=== PATIENT | male | born 1975 | race Caucasian/White ===

== ENCOUNTER 2020-01-09 22:27 | Emergency (ER) | payer OTHER ==
[~2020-01-09] VITALS: Ht 175.3 cm; Wt 74.8 kg
--- NOTE | 2020-01-09 22:38 | NUR ---
Dr. Nichole at bedside for MSE
--- NOTE | 2020-01-09 22:39 | NUR ---
Patient ambulating with steady gait. A&Ox4. c/o laceration on right hand s/p sharpening knives today. Sensation intact x5 digits. Able to move all digits freely. Breathing even and unlabored. no cough or SOB noted. Speech is clear and able to make needs known / follow commands. Denies any / GI distress.
[2020-01-09] MEDS ORDERED: ONDANSETRON ODT 4 MG TAB.RAPDIS SL ONE (23:00)
[2020-01-09] MEDS ORDERED: SODIUM BICARBONATE 4.2 % (NEUT) 5 ML VIAL TP ONE (23:00)
[2020-01-09] MEDS ORDERED: LIDOCAINE 1%-EPI 1:100,000 20 ML VIAL IJ ONE (23:00)
[2020-01-09] MEDS ORDERED: AMOXICILLIN-CLAVUL 875-125MG TABLET PO ONE (23:00)
[2020-01-09] MEDS ORDERED: HYDROCODONE/APAP 5-325MG TABLET PO ONE (23:00)
[2020-01-09] MEDS ORDERED: ONDANSETRON ODT 4 MG TAB.RAPDIS ONE (23:09)
[2020-01-09] MEDS ORDERED: HYDROCODONE/APAP 5-325MG TABLET ONE (23:10)
[2020-01-09] MEDS ORDERED: AMOXICILLIN-CLAVUL 875-125MG TABLET ONE (23:10)
--- NOTE | 2020-01-09 23:11 | NUR ---
Patient discharged to home in stable conditon. Written and verbal after care instructions given. Patient verbalizes understanding of instructions. Patient ambulating with steady gait. Girlfriend outside of ED to take patient home
[2020-01-09 23:17] VITALS: BP 136/73
== END 2020-01-09 23:11 | disposition home or self-care (01) ==
LOC: ER 22:31
PROC: 0HQFXZZ Repair Right Hand Skin, External Approach (ICD-10-PCS; principal; 2020-01-09)
DX: S61.411A Laceration without foreign body of right hand, initial encounter (principal); W26.0XXA Contact with knife, initial encounter; Y93.89 Activity, other specified; Y92.89 Other specified places as the place of occurrence of the external cause; F17.210 Nicotine dependence, cigarettes, uncomplicated
CPT/HCPCS: 99284; 12002; 99406; J3490 ×2; A4663; Q0162

== ENCOUNTER 2020-04-01 14:05 | Emergency (ER) | payer OTHER ==
[~2020-04-01] VITALS: Ht 175.3 cm; Wt 74.8 kg
--- NOTE | 2020-04-01 14:19 | NUR ---
Dr. Estrella at bedside for MSE
--- NOTE | 2020-04-01 14:29 | NUR ---
Patient discharged to home in stable condition. Written and verbal after care instructions given. Patient verbalizes understanding of instructions. Stressed follow up or return to ER for worsening s/s. Patient ambulating with steady gait. NAD noted
[2020-04-01 14:38] VITALS: BP 128/82
== END 2020-04-01 14:29 | disposition home or self-care (01) ==
LOC: ER 14:07
DX: M79.10 Myalgia, unspecified site (principal)
CPT/HCPCS: A4663

== ENCOUNTER 2020-10-04 19:05 | Emergency (ER) | payer OTHER ==
[~2020-10-04] VITALS: Ht 175.3 cm; Wt 77.1 kg
--- NOTE | 2020-10-04 20:25 | NUR ---
MSE COMPLETERD, LEFT SHOULDER SLING PLACED, PT D/C'D HOME WITH ACI/RX 2, ORTHO REFERRAL. PT AMBULATED W/O DIFF/TOOK ALL BELONGINGS.
[2020-10-04 20:27] VITALS: BP 148/102
== END 2020-10-04 20:28 | disposition home or self-care (01) ==
LOC: ER 19:06
DX: M25.512 Pain in left shoulder (principal); M54.2 Cervicalgia; S49.92XS Unspecified injury of left shoulder and upper arm, sequela; V49.9XXS Car occupant (driver) (passenger) injured in unspecified traffic accident, sequela
CPT/HCPCS: A4663

== ENCOUNTER 2020-11-11 03:44 | Emergency (ER) | payer OTHER ==
[~2020-11-11] VITALS: Ht 175.3 cm; Wt 74.8 kg
--- NOTE | 2020-11-11 04:09 | NUR ---
at bedside for assessment
[2020-11-11] MEDS ORDERED: IBUPROFEN 800 MG TABLET ONE (04:30)
[2020-11-11] MEDS ORDERED: IBUPROFEN 800 MG TABLET PO ONE (04:30)
--- NOTE | 2020-11-11 04:50 | NUR ---
Patient does not wish to proceed with medical care recommended by Dr. Paul. Patient given information related to possible complications, up to and including , which could occur as a result of leaving the hospital at this time. Patient verbalizes understanding of risks involved due to leaving against medical advice. Patient has refused to sign AMA form.
== END 2020-11-11 04:52 | disposition left against medical advice (07) ==
LOC: ER 03:46
DX: M54.2 Cervicalgia (principal); M79.602 Pain in left arm; Y35.813A Legal intervention involving manhandling, suspect injured, initial encounter; Y92.410 Unspecified street and highway as the place of occurrence of the external cause; F17.210 Nicotine dependence, cigarettes, uncomplicated
CPT/HCPCS: A4663

== ENCOUNTER 2022-01-17 23:44 | Emergency (ER) | payer OTHER ==
[~2022-01-17] VITALS: Ht 175.3 cm; Wt 77.1 kg
--- NOTE | 2022-01-17 23:55 | NUR ---
DR. EASON AT BEDSIDE, MSE IN POROGRESS.
[2022-01-17] MEDS ORDERED: HYDROCODONE/APAP 10-325 MG TABLET ONE (23:56)
[2022-01-17] MEDS ORDERED: ONDANSETRON ODT 4 MG TAB.RAPDIS ONE (23:56)
[2022-01-18] MEDS ORDERED: ONDANSETRON ODT 4 MG TAB.RAPDIS SL ONE
[2022-01-18] MEDS ORDERED: HYDROCODONE/APAP 10-325 MG TABLET PO ONE
--- NOTE | 2022-01-18 | NUR ---
XRAY AT BEDSIDE.
[2022-01-18] MEDS ORDERED: HYDR-4209 PO (00:23)
--- NOTE | 2022-01-18 00:32 | NUR ---
Patient discharged to home in stable condition. Written and verbal after care instructions given. Patient verbalizes understanding of instructions. Stressed follow up or return to ER for worsening s/s. Steady gait, denies any pain/discomfort upon discharge. Picked up by friend.
[2022-01-18 00:36] VITALS: BP 140/81
== END 2022-01-18 00:39 | disposition home or self-care (01) ==
LOC: ER 23:46
DX: S63.92XA Sprain of unspecified part of left wrist and hand, initial encounter (principal); V00.131A Fall from skateboard, initial encounter; Y93.51 Activity, roller skating (inline) and skateboarding; Y92.89 Other specified places as the place of occurrence of the external cause; F17.210 Nicotine dependence, cigarettes, uncomplicated; M25.742 Osteophyte, left hand
CPT/HCPCS: 73130; Q0162

== ENCOUNTER 2022-02-23 00:33 | Emergency (ER) | payer SELFPAY ==
[~2022-02-23 00:33] MED LIST: HYDR-4209 PO
--- NOTE | 2022-02-23 01:00 | NUR ---
Patient went to to registration window and stated "I change my mind. i don't want to be seen anymore." Patient left without being triaged or seen by ERMD.
== END 2022-02-23 01:00 | disposition left against medical advice (07) ==
LOC: ER 00:45
DX: Z53.21 Procedure and treatment not carried out due to patient leaving prior to being seen by health care provider (principal)

== ENCOUNTER 2022-02-23 06:59 | Emergency (ER) | payer SELFPAY ==
--- NOTE | 2022-02-23 07:30 | NUR ---
pt not in the waiting room/outside er waiting room.
== END 2022-02-23 08:00 | disposition left against medical advice (07) ==
LOC: ER 07:03
DX: Z53.21 Procedure and treatment not carried out due to patient leaving prior to being seen by health care provider (principal)

== ENCOUNTER 2022-03-26 00:40 | Emergency (ER) | payer MEDICAID, OTHER ==
[~2022-03-26] VITALS: Ht 175.3 cm; Wt 77.1 kg
--- NOTE | 2022-03-26 01:05 | NUR ---
Dr. Hendricks at bedside for MSE
[2022-03-26] MEDS ORDERED: LIDOCAINE 1%-EPI 1:100,000 20 ML VIAL ONE (01:08)
[2022-03-26] MEDS ORDERED: SULFAMETH/TRIMETH 800/160 MG TABLET ONE (01:14)
[2022-03-26] MEDS ORDERED: SULFAMETH/TRIMETH 800/160 MG TABLET PO ONE (01:15)
[2022-03-26] MEDS ORDERED: LIDOCAINE 1%-EPI 1:100,000 20 ML VIAL IJ ONE (01:15)
[2022-03-26] MEDS ORDERED: OXYCODONE/APAP 5-325 MG TABLET ONE (01:25)
[2022-03-26] MEDS ORDERED: ONDANSETRON HCL 4 MG TABLET ONE (01:26)
[2022-03-26] MEDS ORDERED: ONDANSETRON HCL 4 MG TABLET PO ONE (01:30)
[2022-03-26] MEDS ORDERED: OXYCODONE/APAP 5-325 MG TABLET PO ONE (01:30)
--- NOTE | 2022-03-26 01:30 | NUR ---
Xray at bedside
--- NOTE | 2022-03-26 01:36 | NUR ---
lab at bedside
[2022-03-26 01:52] LABS: HEMATOCRIT 40.1 % (36.7-47.1); MEAN CORPUSCULAR HEMOGLOBIN 30.5 uug (23.8-33.4); MEAN CORPUSCULAR VOLUME 89.2 fL (73.0-96.2); PLATELET COUNT (AUTO) 282 K/uL (152-348)
[2022-03-26] MEDS ORDERED: HYDR-3972 PO (02:06)
[2022-03-26] MEDS ORDERED: SULF1TAB48 PO (02:06)
[2022-03-26 02:11] LABS: BILIRUBIN,DIRECT 0.1 mg/dL (0.0-0.2); BILIRUBIN,TOTAL 0.3 mg/dL (0.2-1.0); CREATININE 1.2 mg/dL (0.6-1.3); POTASSIUM 3.9 mmol/L (3.5-5.1); TOTAL PROTEIN, SERUM 7.4 g/dL (6.4-8.2)
--- NOTE | 2022-03-26 02:45 | NUR ---
Patient given written and verbal discharge instructions. Patient verbalizes understanding of instructions. Patient is ambulatory with steady gait. Wound care provided, tolerated well. Left in stable condition.
[2022-03-26 02:46] VITALS: BP 126/78
== END 2022-03-26 02:46 | disposition home or self-care (01) ==
LOC: ER 00:46
DX: M25.541 Pain in joints of right hand (principal); L90.5 Scar conditions and fibrosis of skin; B94.8 Sequelae of other specified infectious and parasitic diseases; F17.210 Nicotine dependence, cigarettes, uncomplicated; R00.0 Tachycardia, unspecified
CPT/HCPCS: 17999; 36415; 73130; 80048; 80076; 83735; 85025; 87070; 99284; J3490; A4663; Q0162

== ENCOUNTER 2022-05-22 16:00 | Emergency (ER) | payer OTHER ==
[~2022-05-22] VITALS: Ht 175.3 cm; Wt 77.1 kg
[~2022-05-22 16:00] MED LIST changes: +HYDR-3972 PO; +SULF1TAB48 PO
[2022-05-22] MEDS ORDERED: PIPERACILLIN SODIUM/TAZOBACTAM 3.375 G in IV DEXTROSE 5% 50 ML IV ONE (16:15)
[2022-05-22] MEDS ORDERED: VANCOMYCIN IV 1,000 MG in IV DEXTROSE 5% 250 ML IV ONE (16:15)
[2022-05-22] MEDS ORDERED: VANCOMYCIN IV 200 ML ONE (16:38)
[2022-05-22] MEDS ORDERED: PIPERACILLIN/TAZOBACTAM/D5W 50 ML IV ONE (16:39)
[2022-05-22 16:43] LABS: HEMATOCRIT 37.6 % (36.7-47.1); MEAN CORPUSCULAR HEMOGLOBIN 30.2 uug (23.8-33.4); MEAN CORPUSCULAR VOLUME 88.8 fL (73.0-96.2); PLATELET COUNT (AUTO) 242 K/uL (152-348)
[2022-05-22 16:48] LABS: POTASSIUM 3.9 mmol/L (3.5-5.1)
[2022-05-22 16:54] LABS: BILIRUBIN,DIRECT 0.1 mg/dL (0.0-0.2); BILIRUBIN,TOTAL 0.5 mg/dL (0.2-1.0); TOTAL PROTEIN, SERUM 7.4 g/dL (6.4-8.2)
[2022-05-22] MEDS ORDERED: LIDOCAINE HCL 1% 20 ML VIAL ONE (17:12)
[2022-05-22] MEDS ORDERED: LIDOCAINE HCL 1% 20 ML VIAL IJ ONE (17:15)
[2022-05-22] MEDS ORDERED: HYDROMORPHONE 1 MG/1 ML DISP.SYRIN ONE ×2 (18:26→20:48)
[2022-05-22] MEDS ORDERED: HYDROMORPHONE 1 MG/1 ML DISP.SYRIN IV ONE ×2 (18:30→19:00)
[2022-05-22] MEDS ORDERED: ONDANSETRON 4 MG/2 ML VIAL IV ONE (18:30)
[2022-05-22] MEDS ORDERED: ONDANSETRON 4 MG/2 ML VIAL ONE (18:32)
--- NOTE | 2022-05-22 18:50 | NUR ---
at bedside I&D in progress.
[2022-05-22] MEDS ORDERED: IBUPROFEN 600 MG TABLET PO ONE (19:00)
--- NOTE | 2022-05-22 19:00 | NUR ---
Dry dressing applied as ordered. wound packed. by
--- NOTE | 2022-05-22 19:01 | NUR ---
Report will be given to incoming R.N.
--- NOTE | 2022-05-22 19:15 | NUR ---
OBTAINED BEDSIDE FROM OUTGOING RN, PATIENT LYING ON ST RESTING, #22G SL IN LEFT THUMB, REPORTS PAIN 8/10.AWAITING PICC LINE RN FOR MIDLINE INSERTION. RESP EVEN AND UNLABOR, RIGHT HAND DSG DRY AND INTACT.HAND AND FINGERS SWOLLEN AND PT UNABLE TO PERFORM GRASP ACTION. ENCOURAGE TO KEEP HAND ELEVATED.NO BEDS AVAIL, ADMITTED TO [facility].
--- NOTE | 2022-05-22 19:18 | NUR ---
Report given incoming shift.
--- NOTE | 2022-05-22 19:18 | NUR ---
Wound cx. collected and sent to lab as ordered by Agusto Amaya
[2022-05-22] MEDS ORDERED: IBUPROFEN 600 MG TABLET ONE (20:48)
[2022-05-22] MEDS ORDERED: IV 1/2NS 1000 ML 1,000 ML IV PRN (21:00)
[2022-05-22] MEDS ORDERED: ONDANSETRON 4 MG/2 ML VIAL IV PRN (21:00)
[2022-05-22] MEDS ORDERED: MAGNESIUM HYDROXIDE 30 ML LIQUID UDC PO PRN (21:00)
[2022-05-22] MEDS ORDERED: HYDROCODONE/APAP 5-325MG TABLET PO PRN (21:00)
[2022-05-22] MEDS ORDERED: MORPHINE SULFATE 2 MG/1 ML DISP.SYRIN IV PRN (21:00)
[2022-05-22] MEDS ORDERED: ACETAMINOPHEN 325 MG TABLET PO PRN (21:00)
[2022-05-22] MEDS ORDERED: PIPERACILLIN SODIUM/TAZO 3.375 GM VIAL ONE (21:40)
[2022-05-22] MEDS: PIPERACILLIN SODIUM/TAZOBACTAM 3.375 G in IV DEXTROSE 5% 50 ML IV SCH (21:49)
--- NOTE | 2022-05-22 22:30 | NUR ---
PICC RN IN 18 G MIDLINE INSERTED INTO RIGHT UA USING US. 10 CM LENGTH.GIGI WITHOUT DISTRESS.
[2022-05-22] MEDS ORDERED: MORPHINE SULFATE 2 MG/1 ML DISP.SYRIN ONE (23:42)
--- NOTE | 2022-05-22 23:50 | NUR ---
REPORTS PAIN 7/10 RIGHT HAND THROBBING IN QUALITY. MED WITH MORPHINE SULFATE 2 MG IVP, RE-EVAL IN 30 MINUTES AND RIGHT HAND ELEVATED.
--- NOTE | 2022-05-23 00:55 | NUR ---
RESTING COMFORTABLY IN HOSPITAL BED. TEMP 99.4, PO FLUIDS ENC AND 1/2 ND INFUSING AT 80 ML/HR. VOIDING WITHOUT DIFFICULTY-X 4 BRP.
--- NOTE | 2022-05-23 04:00 | NUR ---
NO DISTRESS OR REPORT OF RIGHT HAND PAIN.RESTING COMFORTABLY
[2022-05-23] MEDS ORDERED: PANTOPRAZOLE SODIUM 40 MG TABLET.DR PO ONE (05:12)
[2022-05-23] MEDS ORDERED: PIPERACILLIN SODIUM/TAZO 3.375 GM VIAL ONE (05:13)
[2022-05-23] MEDS: PIPERACILLIN SODIUM/TAZOBACTAM 3.375 G in IV DEXTROSE 5% 50 ML IV SCH (05:22)
--- NOTE | 2022-05-23 06:59 | NUR ---
PATIENT REFUSED LABS AND REQUESTING LAB DRAW FROM .
[2022-05-23] MEDS ORDERED: PANTOPRAZOLE SODIUM 40 MG TABLET.DR PO SCH (07:00)
--- NOTE | 2022-05-23 07:00 | NUR ---
HR 86 97% sbp 125/73. 98.8
--- NOTE | 2022-05-23 07:18 | NUR ---
REPORT GIVEN TO INCOMING RN ASSUMING CARE
--- NOTE | 2022-05-23 07:30 | NUR ---
Received pt. sleeping IV ML RUE running with fluids. and catbetotip Guthrie at bedside attempting to obtain specimens. Procedure refused by patient who stated "I'm not giving you anything until I eat breakfast" staff requested to come back.
--- NOTE | 2022-05-23 08:10 | NUR ---
After eating double tray 100%% patient was assisted to bathroom by rn. and when finished pt. look for exit and attempting to run away, and stopped at the back entrance with the help of security staff. Pt. stopped and educated on the need to complete his IV antibiotic tx. patient refusing becoming aggressive. stating "don't touch let me go You can't force me to stay" pt. brought back in and ML removed 22G left thumb removed, and pt. signed AMA forme ER. Dr. Madera also educated pt. on the need to stay pt. refused and left. Steady gait, AAOX4. Attending physician Dr. Biswas called to be notified, message left.
--- NOTE | 2022-05-23 08:13 | NUR ---
Midline on RUE removed. Catheter intact and site benign. Pressure and 4x4 gauze applied to site. No bleeding noted.
[2022-05-23 08:30] VITALS: BP 125/73
== END 2022-05-23 08:17 | disposition left against medical advice (07) ==
LOC: ER 16:00
DX: L02.511 Cutaneous abscess of right hand (principal); L03.113 Cellulitis of right upper limb; F17.210 Nicotine dependence, cigarettes, uncomplicated; Z53.29 Procedure and treatment not carried out because of patient's decision for other reasons; D72.829 Elevated white blood cell count, unspecified; I80.8 Phlebitis and thrombophlebitis of other sites
CPT/HCPCS: 99285; 96365; 10060; 96375; 73200; 93971; 96367; 96366 ×2; 80076; 80048; 85025; 85730; 87040 ×2; 87077; 36415; 83605; 36410; 87070; 96376; J3490; J2405; J2543 ×3; J3370; J1170 ×2; J2270

== ENCOUNTER 2023-01-01 13:35 | Emergency (ER) | payer OTHER ==
[~2023-01-01] VITALS: Ht 175.3 cm; Wt 86.2 kg
[2023-01-01 13:55] LABS: *BILIRUBIN,URIN NEGATIVE (NEGATIVE); *BLOOD, URINE NEGATIVE (NEGATIVE); *CLARITY,URINE CLEAR (CLEAR); *COLOR,URINE YELLOW (YELLOW); *KETONES,URINE NEGATIVE (NEGATIVE); *UROBILINOGEN,URINE 0.2 E.U./dl (NORMAL); LEUKOCYTE ESTERASE ,URINE NEGATIVE (NEGATIVE); NITRITE, URINE NEGATIVE (NEGATIVE); UGLUCOSE NEGATIVE (NEGATIVE)
[2023-01-01] MEDS ORDERED: CAPS1ADH5 TP (14:23)
[2023-01-01] MEDS ORDERED: IBUP-1957 PO (14:23)
--- NOTE | 2023-01-01 14:38 | NUR ---
Patient discharged to home by Dr Torres in stable condition with brisk steady gait. Written and verbal after care instructions given. Patient verbalizes understanding an dcompliance of instructions. Stressed follow up with primary doctor and back pain specialist or return to ER for worsening s/s.
[2023-01-01 14:39] VITALS: BP 133/79
== END 2023-01-01 14:40 | disposition home or self-care (01) ==
LOC: ER 13:35
DX: M54.50 Low back pain, unspecified (principal); F17.210 Nicotine dependence, cigarettes, uncomplicated
CPT/HCPCS: A4663

== ENCOUNTER 2023-04-19 06:03 | Inpatient (IN) | payer OTHER ==
[~2023-04-19] VITALS: Ht 175.3 cm; Wt 83.9 kg
[~2023-04-19 06:03] MED LIST changes: +CAPS1ADH5 TP; +IBUP-1957 PO
--- NOTE | 2023-04-19 06:40 | NUR ---
PT AMB TO RM 4A WITH C/O TINGLING AND NUMBNESS RT ARM, TORSO AND FACE X 16 HRS. AWARE.
--- NOTE | 2023-04-19 06:50 | NUR ---
Pt care continue as code Stroke is called after been seen by MD and protocal follow.
[2023-04-19] MEDS ORDERED: IV NORMAL SALINE 1000 ML BAG IV ONE (07:00)
[2023-04-19 07:01] LABS: HEMATOCRIT 39.1 % (36.7-47.1); MEAN CORPUSCULAR HEMOGLOBIN 30.9 uug (23.8-33.4); MEAN CORPUSCULAR VOLUME 90.4 fL (73.0-96.2); PLATELET COUNT (AUTO) 227 K/uL (152-348)
[2023-04-19 07:09] LABS: CARBON DIOXIDE 28 mmol/L (21-32); CHLORIDE 105 mmol/L (98-107); POTASSIUM 4.1 mmol/L (3.5-5.1); UREA NITROGEN, BLOOD 18 mg/dL (7-18)
--- NOTE | 2023-04-19 07:10 | NUR ---
Pt is noted off to CT. Pt care continue.
[2023-04-19] MEDS ORDERED: IV NORMAL SALINE 250 ML IV ONE (07:14)
[2023-04-19] MEDS ORDERED: SWABABLE VALVE TRANSFER SET EA MC ONE (07:14)
[2023-04-19] MEDS ORDERED: IOHEXOL 350 100 ML INFUS..BTL ONE (07:15)
--- NOTE | 2023-04-19 07:17 | NUR ---
PATIENT IN CAT SCAN NOW. [facility] WAS NOTIFIED OF DUPLEX VENOUS ORDERED, HE IS ON HIS WAY. Cally
--- NOTE | 2023-04-19 07:28 | NUR ---
REPORT WAS GIVEN TO ANJANA YU.
[2023-04-19 07:42] LABS: CREATINE KINASE, TOTAL 400 U/L (39-308); PHOSPHOROUS 3.4 mg/dL (2.5-4.9)
[2023-04-19] MEDS ORDERED: ASPIRIN 81 MG TAB.CHEW PO ONE (08:15)
--- NOTE | 2023-04-19 08:20 | NUR ---
Pt in stable condition. Pt arrived to radiology for CT at approximately 0710. Teleneurology was consulted and NIHSS was performed at 0738 with score of 4. Pt is A&Ox4. Pt passed swallow eval. Safety measures in place. Will continue to monitor.
--- NOTE | 2023-04-19 09:20 | NUR ---
Contacted 3rd floor to give report. Was informed that accepting RN is busy at the moment. Was informed that accepting RN will call ER back.
--- NOTE | 2023-04-19 09:34 | NUR ---
Pt could not urinate as I had asked Pt multiple times. Safety measures in place. Will continue to monitor.
--- NOTE | 2023-04-19 09:39 | NUR ---
Gave report to Marina (AIMEE).
--- NOTE | 2023-04-19 10:00 | NUR ---
ADMITTED FROM HOME VIA ER A 47 YO MALE WITH ADMITTING DX OF ISCHEMIC STROKE. AWAKE ALERT AND ANSWERS ALL QUESTIONS APPROPRIATELY, NO SS OF RESPIRATORY DISTRESS, C/O RIGHT SHOULDER PAIN WHEN ASKED TO RAISE LIKE 10 SECONDS. ROUTINE STROKE PROTOCOL ADMISSION INITIATED. WILL CALL HOSPITALIST FOR ADMISSION ORDERS
--- NOTE | 2023-04-19 10:07 | NUR ---
Pt arrived to Rm 319 with all belongings safely and in stable condition. Gave paperwork to director of community services. Accepting RN is awere of Pt in his bed.
--- NOTE | 2023-04-19 10:43 | NUR ---
seen and examined by dr susan baptiste at bedside, patient awake alert and verbally responsive to all questions, c/0 pain right arm will follow-up MRI per neuro recommendation
[2023-04-19 11:00] VITALS: BP 142/86; TEMP 97.2; O2SAT 100
--- NOTE | 2023-04-19 11:37 | NUR ---
APPROVED BY DR. ELI.
[2023-04-19 15:04] VITALS: BP 136/84; TEMP 98.2
--- NOTE | 2023-04-19 15:50 | NUR ---
Clinical SW Consult: Social work consult was called to evaluate pt for stroke: Pt is alert and oriented x4. Pt's mood appeared congruent and cooperative. Pt stated, "I don't feel great because of my stroke but I am waiting to get well to return home." Pt appeared a little drowsy. However, pt was cooperative. Pt denied suicidal and homicidal ideation. Pt denied substance and alcohol use. Pt's insight and judgement appear intact. Pt stated he lives with his girlfriend located at [address] [place] [address] where he will return home upon discharge. SW completed a Post Stroke Depression Screening (MPHQ-9) and the pt scored 0. Pt denied a depressed mood and hx of depressed mood. Pt stated he has great support from his girlfriend and mother, Socorro [phone]. SW will continue to be available and assist pt and family as needed. SW provided mental health therapy resources for the pt's continuation of care as needed. Pt refused the referrals and stated he does not want them.
[2023-04-19 16:32] VITALS: BP 122/86; TEMP 97.9; O2SAT 98
--- NOTE | 2023-04-19 18:25 | NUR ---
COMPENSATION ANALYST CALLED AND SAID PER DR MARGARET ASCENCIO CANCEL MRI
--- NOTE | 2023-04-19 19:30 | NUR ---
Received patient laying in bed. In no acute distress. Iv site patent and intact. Alert and oriented x4. Will continue to monitor and will continue plan of care
[2023-04-19 20:00] VITALS: BP 108/63; TEMP 97.1; O2SAT 100
[2023-04-19] MEDS ORDERED: SIMVASTATIN 20 MG TABLET PO SCH (21:00)
[2023-04-20] VITALS: BP 111/71; TEMP 98; O2SAT 100
[2023-04-20] MEDS ORDERED: ALPRAZOLAM 0.25 MG TABLET PO PRN (01:45)
[2023-04-20 04:00] VITALS: BP 107/68; TEMP 97.7; O2SAT 99
--- NOTE | 2023-04-20 06:54 | NUR ---
Educated patient upon lab work importance, however patient refused blood work to be done.
[2023-04-20] MEDS ORDERED: PANTOPRAZOLE SODIUM 40 MG TABLET.DR PO SCH (07:00)
[2023-04-20] MEDS ORDERED: ASPIRIN EC 81 MG TABLET.DR PO SCH (09:00)
--- NOTE | 2023-04-20 10:15 | NUR ---
Noted pt not in his room. Looked throughout 3rd floor pt cant be found. Checked with security pt was on black clothes with a bag walked out of hospital. PT left AMA eta @1000 per security. Checked pt room for any IV catheter taken out and none found. Notified Nursing order to delivery supervisor of AMA with possible iv still in. Called [facility] and aware of AMA. Called pt family contact - Line not in service. science manager Called [place] police station [phone] unable to get human on the phone for assistance to report pt having polysubstance abuse and possible left with IV but was able to get through system to leave a message of situation and to call back here at the hospital. I Attempted to file report online but [place] Police website doesn't have any options to select for the apparent situation and unable to get through any human communication - spent 30 mins on attempt.
--- NOTE | 2023-04-20 18:27 | NUR ---
Noted call back from [facility]
== END 2023-04-20 10:00 | disposition left against medical advice (07) | DRG 347 ==
LOC: ER 06:07 → TELE3 09:41
PROVIDERS: ADMIT Nurse Practitioner Acute Care; ATTEND Nurse Practitioner Acute Care
DX: M48.02 Spinal stenosis, cervical region (principal); F17.210 Nicotine dependence, cigarettes, uncomplicated; G89.29 Other chronic pain; Z20.822 Contact with and (suspected) exposure to COVID-19; F19.10 Other psychoactive substance abuse, uncomplicated; R20.2 Paresthesia of skin; R53.1 Weakness; R51.9 Headache, unspecified
CPT/HCPCS: 36415; 70450; 70496; 71045; 72125; 83735; 84100; 84484; 85025; 85730; 93005; A4663; G0378; G0480; J7040; Q9967

== ENCOUNTER 2024-03-09 00:08 | Emergency (ER) | payer OTHER ==
[~2024-03-09] VITALS: Ht 175.3 cm; Wt 81.6 kg
[2024-03-09] MEDS ORDERED: HYDROMORPHONE 1 MG/1 ML DISP.SYRIN IV ONE (00:30)
[2024-03-09] MEDS ORDERED: ONDANSETRON ODT 4 MG TAB.RAPDIS ONE (00:43)
[2024-03-09] MEDS ORDERED: BUPRENORPHINE HCL 2 MG TAB.SUBL SL ONE (00:44)
[2024-03-09] MEDS ORDERED: BUPR1FIL3 SL (00:48)
[2024-03-09 00:53] LABS: BASOPHILS # (AUTO) 0.1 K/UL (0.0-0.2); BASOPHILS % (AUTO) 0.7 % (0.0-2.0); EOSINOPHILS # (AUTO) 0.2 K/uL (0.0-0.7); EOSINOPHILS % (AUTO) 2.5 % (0.0-7.0); HEMATOCRIT 48.2 % (36.7-47.1); HEMOGLOBIN 16.1 g/dL (12.5-16.3); LYMPHOCYTES # (AUTO) 3.4 K/uL (0.8-4.8); LYMPHOCYTES % (AUTO) 39.8 % (20.5-51.5); MEAN CORPUSCULAR HGB CONC 33 g/dL (32.5-36.3); MONOCYTES # (AUTO) 0.5 K/uL (0.1-1.30); MONOCYTES % (AUTO) 5.8 % (0.0-11.0); NEUTROPHILS # (AUTO) 4.3 K/uL (1.8-8.9); NEUTROPHILS % (AUTO) 51.2 % (38.5-71.5); PLATELET COUNT (AUTO) 240 K/uL (152-348); RED BLOOD CELL COUNT(AUTO) 5.18 MIL/uL (4.06-5.63); RED CELL DISTRIBUTION WIDTH 13.1 % (12.1-16.2); WHITE BLOOD COUNT (AUTO) 8.5 K/uL (3.6-10.2)
[2024-03-09] MEDS: IV NORMAL SALINE 1000 ML BAG IV ONE (00:53)
[2024-03-09] MEDS: BUPRENORPHINE HCL 2 MG TAB.SUBL SL ONE (00:53)
[2024-03-09] MEDS: ONDANSETRON 4 MG/2 ML VIAL IV ONE (00:54)
[2024-03-09 01:06] LABS: CALCIUM 8.6 mg/dL (8.5-10.1); CARBON DIOXIDE 28 mmol/L (21-32); CHLORIDE 105 mmol/L (98-107); CREATININE 1.1 mg/dL (0.6-1.3); GLUCOSE 99 mg/dL (74-106); POTASSIUM 4.3 mmol/L (3.5-5.1); SODIUM SERUM 141 mmol/L (136-145); UREA NITROGEN, BLOOD 14 mg/dL (7-18)
[2024-03-09 01:11] LABS: ALANINE AMINOTRANSFERASE 17 U/L (16-63); ALBUMIN 3.7 g/dL (3.4-5.0); ALKALINE PHOSPHATASE 105 U/L (50-136); ASPARTATE AMINOTRANSFERASE 10 U/L (15-37); BILIRUBIN,TOTAL 0.3 mg/dL (0.2-1.0); LIPASE 24 U/L (16-77); TOTAL PROTEIN, SERUM 7.6 g/dL (6.4-8.2)
[2024-03-09 01:12] LABS: BILIRUBIN,DIRECT < 0.1 mg/dL (0.0-0.2)
[2024-03-09] MEDS: ONDANSETRON ODT 4 MG TAB.RAPDIS SL ONE (01:34)
[2024-03-09 01:48] LABS: *BILIRUBIN,URIN NEGATIVE (NEGATIVE); *BLOOD, URINE NEGATIVE (NEGATIVE); *CLARITY,URINE CLEAR (CLEAR); *COLOR,URINE YELLOW (YELLOW); *KETONES,URINE NEGATIVE (NEGATIVE); *PROTEIN,URINE TRACE (NEGATIVE); LEUKOCYTE ESTERASE ,URINE NEGATIVE (NEGATIVE); NITRITE, URINE NEGATIVE (NEGATIVE); PH,URINE 6.5 (5.0-8.0); UGLUCOSE NEGATIVE (NEGATIVE)
[2024-03-09 03:01] VITALS: BP 130/86; TEMP 98; O2SAT 99
== END 2024-03-09 03:02 | disposition home or self-care (01) ==
LOC: ER 00:20
DX: R10.9 Unspecified abdominal pain (principal); F11.23 Opioid dependence with withdrawal; F17.210 Nicotine dependence, cigarettes, uncomplicated; Z90.49 Acquired absence of other specified parts of digestive tract; Z79.899 Other long term (current) drug therapy
CPT/HCPCS: 36415; 71045; 83690; 85025; A4606; A4663; J7040; Q0162

== ENCOUNTER 2024-06-07 03:01 | Emergency (ER) | payer OTHER ==
[~2024-06-07] VITALS: Ht 175.3 cm; Wt 83.9 kg
[~2024-06-07 03:01] MED LIST changes: +BUPR1FIL3 SL
--- NOTE | 2024-06-07 04:00 | NUR ---
Patient discharged to home in stable condition. Written and verbal after care instructions given. Patient verbalizes understanding of instructions. Stressed follow up or return to ER for worsening s/s.
[2024-06-07 04:01] VITALS: BP 142/78; TEMP 98; O2SAT 100
== END 2024-06-07 04:01 | disposition home or self-care (01) ==
LOC: ER 03:15
DX: D17.39 Benign lipomatous neoplasm of skin and subcutaneous tissue of other sites (principal); F17.200 Nicotine dependence, unspecified, uncomplicated; Z90.49 Acquired absence of other specified parts of digestive tract; Z79.899 Other long term (current) drug therapy; Z79.891 Long term (current) use of opiate analgesic
CPT/HCPCS: A4606; A4663